=== PATIENT | male | born 1990 | race Caucasian/White ===

== ENCOUNTER → 2018-04-04 | Outpatient (CLI) | payer OTHER ==
--- NOTE | 2018-04-04 15:25 | RAD ---
EXAM DESCRIPTION: Foot,Left 3 Views CLINICAL HISTORY: 27 years, Male, M79.672 COMPARISON: None TECHNIQUE: AP, lateral, and oblique views of the left foot FINDINGS: There is no bone, joint, or soft tissue abnormality observed. There is no radiopaque foreign body. IMPRESSION: Negative. Electronically signed by: Allan Mccormick MD 04/04/2018 3:24 PM [facility]
== END ==
LOC: RAD 14:49
DX: M79.672 Pain in left foot (principal)

== ENCOUNTER → 2018-07-20 | Outpatient (CLI) | payer OTHER | LOC: LAB.O 16:58 | PROVIDERS: ATTEND Family Medicine | DX: Z11.3 Encounter for screening for infections with a predominantly sexual mode of transmission (principal) ==

== ENCOUNTER 2018-09-14 00:11 | Emergency (ER) | payer OTHER ==
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
[2018-09-14] MEDS ORDERED: ceFAZolin SODIUM 1 GM VIAL IM ONE (00:31)
[2018-09-14] MEDS ORDERED: BUPIVACAINE 0.5% 30 ML VIAL INJ ONE (00:40)
[2018-09-14] MEDS ORDERED: CHLORHEXIDINE GLUCONATE 4 % 15 ML UD TOP ONE ×2 (00:40→02:07)
[2018-09-14] MEDS ORDERED: LIDOCAINE 1% 2 ML VIAL INJ ONE (01:45)
[2018-09-14] MEDS ORDERED: NEOMYCIN-BACITRACIN-POLYMYXIN 0.9 GM UD TOP ONE ×5 (02:00→03:09)
[2018-09-14] MEDS ORDERED: WATER FOR INJ 10 ML VIAL INJ ONE (02:02)
[2018-09-14] MEDS ORDERED: MORPHINE SULFATE INJ 10 MG/ML VIAL IM ONE (02:16)
[2018-09-14] MEDS ORDERED: ONDANSETRON 4 MG TAB PO ONE (02:16)
[2018-09-14] MEDS ORDERED: HYDROmorphone HCL INJ 2 MG/ML VIAL IM ONE (03:21)
[2018-09-14 08:39] VITALS: BP 155/96; O2SAT 96
[2018-09-14 09:38] VITALS: TEMP 98.2
== END 2018-09-14 09:38 | disposition home or self-care (01) ==
LOC: ER 00:11
DX: S01.81XA Laceration without foreign body of other part of head, initial encounter (principal); S30.811A Abrasion of abdominal wall, initial encounter; S60.512A Abrasion of left hand, initial encounter; S60.511A Abrasion of right hand, initial encounter; S20.319A Abrasion of unspecified front wall of thorax, initial encounter; S90.812A Abrasion, left foot, initial encounter; S90.811A Abrasion, right foot, initial encounter; S00.31XA Abrasion of nose, initial encounter; R55 Syncope and collapse; V86.59XA Driver of other special all-terrain or other off-road motor vehicle injured in nontraffic accident, initial encounter; Y92.89 Other specified places as the place of occurrence of the external cause
CPT/HCPCS: A4216; J0690; J1170; J2270